=== PATIENT | female | born 1975 ===

== ENCOUNTER 2018-12-12 15:45 | Emergency (ER) | payer SELFPAY ==
[~2018-12-12] VITALS: Ht 165.1 cm; Wt 140.0 kg
--- NOTE | 2018-12-12 16:58 | NUR ---
Pt returned from X-ray via w/c and is now going to have a bedside vascular study completed.
--- NOTE | 2018-12-12 17:18 | NUR ---
Bedside US completed. technical research scientist to give verbal report of findings to provider. Pt is awaiting further orders or disposition.
[2018-12-12] MEDS ORDERED: ketorolac tromethamine 15mg/ml inj. IM ONE (17:25)
[2018-12-12] MEDS ORDERED: IBUP-1984 PO (17:50)
--- NOTE | 2018-12-12 17:50 | NUR ---
Medicated as ordered for pain. Discharge paperwork is pending from the provider.
[2018-12-12 17:52] VITALS: BP 144/82
== END 2018-12-12 18:01 | disposition home or self-care (01) ==
LOC: ER 15:45
DX: M66.0 Rupture of popliteal cyst (principal); M13.861 Other specified arthritis, right knee; Z88.6 Allergy status to analgesic agent; Z79.1 Long term (current) use of non-steroidal anti-inflammatories (NSAID); X58.XXXA Exposure to other specified factors, initial encounter; Y93.89 Activity, other specified; Y92.89 Other specified places as the place of occurrence of the external cause; Y99.8 Other external cause status
CPT/HCPCS: 73560; 93971; 96372; 99284; J1885